=== PATIENT | female | born 2000 | race Caucasian/White ===

== ENCOUNTER 2019-03-24 15:16 | Inpatient (IN) ==
[2019-03-24] MEDS ORDERED: SODIUM CHLORIDE 0.9% 1000ML 1,000 ML IV ONE ×3 (15:50→19:59)
[2019-03-24] MEDS ORDERED: ALBUT/IPRATROP 3MG/0.5MG NEB 3 ML VIAL NEB STA ×3 (15:50→19:59)
[2019-03-24] MEDS ORDERED: ACETAMINOPHEN 1,000 MG/100 ML VIAL IV STA (15:51)
[2019-03-24 16:11] LABS: Basophils # (auto) 0.02 K/uL (0-0.2); Basophils % (auto) 0.2 %; Eosinophils # (auto) 0.08 K/uL (0-0.5); Eosinophils % (auto) 0.8 %; Hematocrit (blood only) 35.5 % (37-47); Hemoglobin 12.2 g/dL (12.0-16.0); Lymphocytes # (auto) 1.65 K/uL (1.2-3.4); Lymphocytes % (auto) 15.9 %; Mean Corpuscular Hemoglobin 30.2 pg (25-34); Mean Corpuscular Hgb Conc 34.4 g/dL (32-36); Mean Corpuscular Volume 87.9 fL (80-100); Mean Platelet Volume 10.1 fL (7.4-10.4); Monocytes % (auto) 4.8 %; Neutrophils # (auto) 8.02 K/uL (1.4-6.5); Neutrophils % (auto) 77.3 %; Platelet Count 292 K/uL (130-400); RDW Coefficient of Variation 13.6 % (11.5-14.5); RDW Standard Deviation 44.4 fL (36.4-46.3); Red Blood Count 4.04 M/uL (4.2-5.4); White Blood Count 10.37 K/uL (4.8-10.8)
[2019-03-24 16:27] LABS: Alanine Aminotransferase 31 U/L (12-78); Albumin Level 4.1 gm/dl (3.4-5.0); Aspartate Aminotransferase 20 U/L (15-37); BUN Creatinine Ratio 16.4 (10-20); Blood Urea Nitrogen 15 mg/dl (7-18); Calcium 9.4 mg/dl (8.5-10.1); Carbon Dioxide 27 mmol/L (21-32); Chloride 101 mmol/L (98-107); Creatinine Clr Calc Pharmacy 121.1 ml/min; Est GFR (African American) 108.9; Glucose 118 mg/dl (70-99); Magnesium 2.2 mg/dl (1.8-2.4); Potassium 3.5 mmol/L (3.5-5.1); Sodium 137 mmol/L (136-145)
[2019-03-24 16:31] LABS: Albumin Globulin Ratio 0.8 (0.9-2); Alkaline Phosphatase 85 U/L (45-117); Bilirubin,Total 0.3 mg/dl (0.2-1); Globulin 5.1 gm/dl (2.5-4.0); Total Protein 9.2 gm/dl (6.4-8.2); Troponin I < 0.015 ng/ml (0-0.045)
[2019-03-24 16:33] LABS: Monotest Negative (Negative); Pregnancy Test, Serum Negative (Negative)
[2019-03-24] MEDS ORDERED: KETOROLAC TROMETHAMINE 15 MG/ML VIAL IV STA (17:00)
[2019-03-24 17:07] LABS: Influenza A virus by PCR Neg for Influ A (Neg); Influenza B virus by PCR Neg for Influ B (Neg)
--- NOTE | 2019-03-24 17:47 | XRay Report ---
XR chest 2V PA/lateral CLINICAL HISTORY: cough, fever dyspnea COMPARISON STUDY: No previous studies for comparison. FINDINGS: Left and to a lesser extent right perihilar parenchymal infiltrative change. Left basilar i nfiltrative change. Pulmonary apices are clear. IMPRESSION: Bilateral parenchymal infiltrative change. The above report was generated using voice recognition software. It may contain grammatical, syntax or spelling errors. Electronically signed by: Jordan Padilla M.D. 03/24/2019 5:46 PM
[2019-03-24] MEDS ORDERED: cefTRIAXone SODIUM 1,000 MG/50 ML BAG IV STA (18:21)
[2019-03-24] MEDS ORDERED: AZITHROMYCIN 250 MG TAB PO ONE (18:21)
--- NOTE | 2019-03-24 21:24 | History & Physical Report ---
Date of Service March 24, 2019 Assessment & Plan (1) Pneumonia: 18 yo female no significant PMH presents with fevers, chills, cough for since last Monday. Acute hypoxic respiratory distress in the setting of febrile illness, pneumonia Chest x-ray showed bilateral basilar infiltrates, sats dropped to 70's with ambulation in the ED Patient's flu negative, Monospot negative, WBC 10.37, nontoxic-appearing Treating community acquired PNA with ceftriaxone/azithromycin Supportive treatments include IVF, Mucinex, Tylenol, Ibuprofen, albuterol as needed CODE STATUSfull DVT prophylaxisSCDs, ambulate Dietregular (2) Hypoxia: (3) Fever: (4) Tachycardia: (5) Myalgia: History of Present Illness Primary Care Provider: NO PCP 18 yo female no significant PMH presents with fevers, chills, cough for since last Monday. Illness began with cough on Monday and she began to develop fevers, chills, fatigue over the weekend. The patient denies neck pain, sick contacts or recent international travel. 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 She denies a history of smoking, vaping. She denies any chronic disease and she is not on any medications. Denies a history of asthma. Patient is not a OCP, denies FH of clots, no recent immobility. Review of systems Patient describes fevers, chills, fatigue. Denies sore throat. Patient denies chest pain, palpitations Reports to have shortness of breath, cough, denies hemoptysis, denies calf tenderness Denies abdominal pain, nausea/vomiting/diarrhea Allergies Allergy/AdvReac Type Severity Reaction Status Date / Time No Known Allergies Allergy Unverified 03/24/19 15:34 Home Medications Home Medications Medication Instructions Recorded Confirmed Type OR-IP-obqatt/OI-hhshsi-hvmsgsa 2 cap PO Q6H PRN 03/24/19 03/24/19 History [Vicks DayQuil-NyQuil] dextromethorphan polistirex 10 ml PO Q12H PRN 03/24/19 03/24/19 History [Delsym 12 hour] Past Med/Surg History Medical History No pertinent past medical history Family History Other No pertinent family history in first degree relatives Social History Preferred Language: Arabic Communication Ability: Effective Facilities Clerk Required: No Beliefs That Will Affect Care: None Current Living Situation Comment: Roommates Feels Safe at Home: Yes Safety Concerns: Feels Safe At This Time Smoking Status: Never smoker Hx Alcohol Use: Yes Alcohol type: beer, wine and hard liquor Hx Substance Use: No Review of Systems Review of Systems: All systems reviewed & are unremarkable except as noted in HPI & below Physical Exam Constitutional: WD/WN, vitals as above Eyes: PERRL, conjunctivae normal, anicteric sclerae ENMT: external ear and nose normal, oropharynx normal Neck: trachea midline, no thyromegaly Respiratory: normal respiratory effort, lungs clear to auscultation Cardiovascular: RRR, no murmur, no edema Gastrointestinal (Abdomen): normal bowel sounds, soft, nontender, no hepatosplenomegaly Musculoskeletal: no cyanosis or clubbing, extremities motor strength 5/5 Skin: no rashes, warm and dry Neurologic: PERRL, EOMI, accommodation nl, no face palsy, no dysarthria Psychiatric: A+Ox3, euthymic affect Results & Data Vital Signs (Past 12 Hours) Vital Signs Temp Pulse Pulse Resp BP BP Pulse Ox 03/24/19 21:00 120 H 24 114/68 03/24/19 20:30 118 H 22 102/62 93 03/24/19 20:15 105 H 16 93 03/24/19 20:14 03/24/19 20:00 108 H 19 115/68 93 03/24/19 19:35 107 H 21 97/62 L 92 03/24/19 18:47 110 H 25 H 105/67 92 03/24/19 17:56 111 H 20 102/67 97 03/24/19 17:52 101 H 18 94 03/24/19 16:33 122 H 35 H 110/93 92 03/24/19 16:28 124 H 18 92 03/24/19 15:19 38.8 C H 130 H 20 110/71 92 Pulse Ox Pulse Ox Pulse Ox 03/24/19 21:00 03/24/19 20:30 03/24/19 20:15 03/24/19 20:14 86 L 93 94 03/24/19 20:00 03/24/19 19:35 03/24/19 18:47 03/24/19 17:56 03/24/19 17:52 03/24/19 16:33 03/24/19 16:28 03/24/19 15:19 Code Status & VTE Plan Code Status full code VTE Prophylaxis Plan VTE Prophylaxis will be ordered: Yes Supervising Physician Co-Signing Physician Notes Patient seen and examined, chart reviewed, case discussed with Dr. Burris and I agree with this assessment and plan. Briefly, patient is a 18-year-old female with no significant past medical or surgical history presenting with multifocal pneumonia. She has been ill for the last few days. Developed fevers over the weekend. In the ER she was found to be tachycardic, tachypneic and hypoxic on room air, severely hypoxic with ambulation. On exam she is afebrile, regular tachycardia, otherwise hemodynamically stable, no respiratory distress. Adequate oxygenation on room air Skin: Warm, dry, intact, no rashes/lesions HEENT: Normocephalic atraumatic, pupils equal round react to light, extraocular muscles intact, moist mucous membranes, neck supple, no JVD, trachea midline Heart: S1-S2 present, regular, tachycardic, no M/R/G Lungs: Slightly diminished breath sounds bilaterally, no rales/rhonchi/wheezes Abdomen: Bowel sounds present, soft, nontender/nondistended Extremities: Warm, 2+ pulses, no edema Labs and images reviewed Assessment/plan: -Admit to medical floor -Treatment for community acquired pneumonia as above -Nebs as needed -Monitor oxygenation -Manger plan as above PG Care Time/CCT Total # of Minutes Spent Total Time Spent with Patient: Total time spent is greater than 50% in coordination of care (as documented) at patient's floor/unit and/or counseling patient: Resident Activity Tracking Resident Involvement: Resident Care Provided Care Provided: Adult Hospital Medicine (1) Fever Fever type: unspecified Qualified Code(s): R50.9 - Fever, unspecified (2) Pneumonia Laterality: unspecified laterality Lung location: unspecified part of lung Pneumonia type: due to unspecified organism Qualified Code(s): J18.9 - Pneumonia, unspecified organism
[2019-03-24] MEDS ORDERED: POLYETHYLENE (MIRALAX) 17 GM PACK PO PRN (22:14)
[2019-03-24] MEDS ORDERED: ONDANSETRON INJ 2 MG/ML 2 ML VIAL IV PRN (22:14)
[2019-03-24] MEDS ORDERED: ACETAMINOPHEN 325 MG TAB PO PRN (22:14)
[2019-03-24] MEDS ORDERED: ALBUTEROL 0.5% NEB SOLN 2.5 MG/0.5 ML VIAL NEB PRN (22:14)
[2019-03-24] MEDS ORDERED: ALBUT/IPRATROP 3MG/0.5MG NEB 3 ML VIAL INH PRN (22:23)
[2019-03-24] MEDS: SODIUM CHLORIDE 0.9% 1000ML 1,000 ML IV SCH (22:32)
--- NOTE | 2019-03-24 23:13 | Emergency Department Note ---
Entered by Vanda Kimball acting as a scribe for FloridalmajoseDominiqueyana Goel DO History of Present Illness General Chief complaint: Flu Like Symptoms Stated complaint: COUGHING,SWEATS,SOB,BODY ACHES Time Seen by Provider: 03/24/19 15:35 Source: patient History of Present Illness Provider complaint: Flu Like Symptoms Onset (ago): day(s) 4 Location: upper extremity and lower extremity Maximum Pain Intensity: 5 Relieved By: + none Exacerbated By: + movement Associated symptoms: + denies other symptoms (Diarrhea), + chest pain, + cough (With phelgm ), + diaphoresis and + shortness of breath; no nausea/vomiting The patient is a 18 year old female who presents to the Emergency Room with complaints of flu like symptoms that began 4 days ago. The patient states her symptoms are exacerbated by movement but not relieved by anything specific. The patient reports that she has been experiencing full body aches and a cough with phlegm. Additionally, the patient reports experiencing chest pain, shortness of breath, and diaphoresis. The patient denies any nausea/vomiting/diarrhea. The patient notes that she has not received a flu shot. States other vaccinations are up-to-date. Denies any other sick contacts or recent travel. Patient states she has been sipping fluids frequently, but has not had a normal appetite. Patient states she was trying [id number] cough and cold medications. Home Medications Home Medications Medication Instructions Recorded Confirmed Type JF-PJ-qiynlb/AP-ubcbuf-psvgris 2 cap PO Q6H PRN 03/24/19 03/24/19 History [Jessica DayQuil-NyQuil] dextromethorphan polistirex 10 ml PO Q12H PRN 03/24/19 03/24/19 History [Delsym 12 hour] Allergies Allergy/AdvReac Type Severity Reaction Status Date / Time No Known Allergies Allergy Unverified 03/24/19 15:34 Past Med/Surg History Medical History No pertinent past medical history Family History Other No pertinent family history in first degree relatives Social History Preferred Language: Sinhala Communication Ability: Effective 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 and A total of 10 systems reviewed and were otherwise negative Physical Exam Vital Signs Vital Signs - 24 hr 03/24/19 15:19 03/24/19 16:28 03/24/19 16:33 Temperature 38.8 C H Temperature Source Oral Sepsis Recent Fever Within 48 Hours Yes Sepsis New/Unexplained Change in Mental Status No Sepsis Action Taken by Nursing No Action Required Pulse Rate 130 H Pulse Rate [Radial] 124 H 122 H Pulse Rate from SpO2 Sensor Pulse Rhythm Regular Pulse Strength Normal Respiratory Rate 20 18 35 H Respiratory Effort / Characteristics Non-Labored Spontaneous Non-Labored Spontaneous Respiratory Depth Normal Respiratory Pattern Regular Blood Pressure 110/71 Blood Pressure [Left Arm] 110/93 Blood Pressure Mean 84 Blood Pressure Mean [Left Arm] 98 Blood Pressure Position Sitting Pulse Oximetry 92 92 92 Pulse Oximetry [Exercises] Pulse Oximetry [Recovery] Pulse Oximetry [Resting] Oxygen Delivery Method Room Air Room Air Room Air 03/24/19 17:52 03/24/19 17:56 03/24/19 18:47 Temperature Temperature Source Sepsis Recent Fever Within 48 Hours Sepsis New/Unexplained Change in Mental Status Sepsis Action Taken by Nursing Pulse Rate Pulse Rate [Radial] 101 H 111 H 110 H Pulse Rate from SpO2 Sensor Pulse Rhythm Pulse Strength Respiratory Rate 18 20 25 H Respiratory Effort / Characteristics Spontaneous Non-Labored Non-Labored Respiratory Depth Normal Normal Respiratory Pattern Regular Regular Blood Pressure Blood Pressure [Left Arm] 102/67 105/67 Blood Pressure Mean Blood Pressure Mean [Left Arm] 78 79 Blood Pressure Position Pulse Oximetry 94 97 92 Pulse Oximetry [Exercises] Pulse Oximetry [Recovery] Pulse Oximetry [Resting] Oxygen Delivery Method Room Air Room Air Room Air 03/24/19 19:35 03/24/19 20:00 03/24/19 20:14 Temperature Temperature Source Sepsis Recent Fever Within 48 Hours Sepsis New/Unexplained Change in Mental Status Sepsis Action Taken by Nursing Pulse Rate 107 H 108 H Pulse Rate [Radial] Pulse Rate from SpO2 Sensor 107 H 106 H Pulse Rhythm Pulse Strength Respiratory Rate 21 19 Respiratory Effort / Characteristics Respiratory Depth Respiratory Pattern Blood Pressure 97/62 L 115/68 Blood Pressure [Left Arm] Blood Pressure Mean 73 83 Blood Pressure Mean [Left Arm] Blood Pressure Position Pulse Oximetry 92 93 Pulse Oximetry [Exercises] 86 L Pulse Oximetry [Recovery] 93 Pulse Oximetry [Resting] 94 Oxygen Delivery Method Room Air 03/24/19 20:15 03/24/19 20:30 03/24/19 21:00 Temperature Temperature Source Sepsis Recent Fever Within 48 Hours Sepsis New/Unexplained Change in Mental Status Sepsis Action Taken by Nursing Pulse Rate 118 H 120 H Pulse Rate [Radial] 105 H Pulse Rate from SpO2 Sensor 118 H Pulse Rhythm Pulse Strength Respiratory Rate 16 22 24 Respiratory Effort / Characteristics Non-Labored Spontaneous Respiratory Depth Respiratory Pattern Blood Pressure 102/62 114/68 Blood Pressure [Left Arm] Blood Pressure Mean 75 83 Blood Pressure Mean [Left Arm] Blood Pressure Position Pulse Oximetry 93 93 Pulse Oximetry [Exercises] Pulse Oximetry [Recovery] Pulse Oximetry [Resting] Oxygen Delivery Method Room Air GENERAL: alert, ill-appearing, well nourished, no distress, non-toxic. Frequent cough during exam. EYE EXAM: normal conjunctiva, PERRL and EOM's grossly intact EARS: TM's clear bilaterally. No effusions. OROPHARYNX: no exudate, no erythema, lips, buccal mucosa, and tongue normal and mucous membranes are moist NECK: supple, no nuchal rigidity, no adenopathy, non-tender LUNGS: Clear to auscultation. Normal chest wall mechanics. No wheezes, rhonchi or rales. HEART: no murmurs, S1 normal and S2 normal ABDOMEN: abdomen soft, non-tender, normo-active bowel sounds, no masses, no rebound or guarding. BACK: Back is symmetrical on inspection and there is no deformity, no midline tenderness, no CVA tenderness. SKIN: no rashes and no bruising, no petechiae UPPER EXTREMITIES: upper extremities are grossly normal. FROM, nml pulses b/l. LOWER EXTREMITIES: No pitting edema. FROM, nml pulses b/l. NEURO EXAM: Normal sensorium, cranial nerves II-XII grossly intact, normal speech, no gross weakness of arms, no gross weakness of legs. Course 1544: Past medical records reviewed. The patient was evaluated in room B09. A complete history and physical exam was performed. 1737: I reevaluated the patient and her heart rate is still 113 and oxygen is at 93%. The patient is feeling better though and has 2nd liter of fluids running. 2000: I reevaluated the patient again and her heart rate is 108 and pulse ox is 89% but she states she feels much better. 2014: The patient did an ambulatory trial and her oxygen dropped into the 70's. I discussed the option of an inpatient stay and she is agreeable to stay. Patient did receive antibiotic coverage for community acquired pneumonia. 2030: I spoke with Dr. Arielle Elliott- Hospitalist about the patient's case and she will accept the patient for further evaluation. Administered Medications Sodium Chloride (Nss 1000ml) 1,000 mls @ 125 mls/hr IV .Q8H BECKI Stop: 04/23/19 22:13 Last Admin: 03/24/19 22:32 Dose: 125 mls/hr Documented by: [id number] Discontinued Medications Albuterol (Duoneb) 3 ml NEB NOW STA Stop: 03/24/19 15:51 Last Admin: 03/24/19 16:27 Dose: 3 ml Documented by: [id number] Albuterol (Duoneb) 3 ml NEB NOW STA Stop: 03/24/19 17:33 Last Admin: 03/24/19 17:52 Dose: 3 ml Documented by: [id number] Albuterol (Duoneb) 3 ml NEB NOW STA Stop: 03/24/19 20:00 Last Admin: 03/24/19 20:13 Dose: 3 ml Documented by: [id number] Azithromycin (Zithromax) 500 mg PO NOW ONE Stop: 03/24/19 18:22 Last Admin: 03/24/19 18:44 Dose: 500 mg Documented by: [id number] Acetaminophen (Ofirmev) 1,000 mg in 100 mls @ 400 mls/hr IV NOW STA Stop: 03/24/19 16:05 Last Infusion: 03/24/19 16:41 Dose: 0 mls/hr Documented by: [id number] Admin: 03/24/19 16:26 Dose: 400 mls/hr Documented by: [id number] Sodium Chloride (Nss 1000ml) 1,000 mls @ 999 mls/hr IV .Q1H1M ONE Stop: 03/24/19 16:50 Last Infusion: 03/24/19 17:17 Dose: 0 mls/hr Documented by: [id number] Admin: 03/24/19 16:26 Dose: 999 mls/hr Documented by: [id number] Sodium Chloride (Nss 1000ml) 1,000 mls @ 999 mls/hr IV .Q1H1M ONE Stop: 03/24/19 18:00 Last Infusion: 03/24/19 18:24 Dose: 0 mls/hr Documented by: [id number] Admin: 03/24/19 17:20 Dose: 999 mls/hr Documented by: [id number] Ceftriaxone Sodium (Rocephin) 1,000 mg in 50 mls @ 100 mls/hr IV NOW STA Stop: 03/24/19 18:50 Last Infusion: 03/24/19 19:43 Dose: 0 mls/hr Documented by: [id number] Admin: 03/24/19 18:44 Dose: 100 mls/hr Documented by: [id number] Sodium Chloride (Nss 1000ml) 1,000 mls @ 999 mls/hr IV .Q1H1M ONE Stop: 03/24/19 20:59 Last Infusion: 03/24/19 21:23 Dose: 0 mls/hr Documented by: [id number] Admin: 03/24/19 20:13 Dose: 999 mls/hr Documented by: [id number] Ketorolac Tromethamine (Toradol) 15 mg IV NOW STA Stop: 03/24/19 17:01 Last Admin: 03/24/19 17:19 Dose: 15 mg Documented by: [id number] Medical Decision Making Differential Diagnosis Differential diagnosis: Etiologies such as viral syndrome, otitis, pharyngitis, pneumonia, influenza, meningitis, urinary tract infection, septic arthritis, soft tissue infectious process, intra-abdominal process, sepsis, bacteremia, as well as others were entertained. Medical Records Attestation: I reviewed the patient's medical records. Home Medications Current Medication List: was personally reviewed by me Laboratory Data Attestation: I reviewed the patient's lab results. Result diagrams: 03/24/19 15:59 03/24/19 15:59 Lab Results 03/24/19 03/24/19 03/24/19 Range/Units 15:59 15:59 15:59 WBC 10.37 (4.8-10.8) K/uL RBC 4.04 L (4.2-5.4) M/uL Hgb 12.2 (12.0-16.0) g/dL Hct 35.5 L (37-47) % MCV 87.9 (80-100) fL MCH 30.2 (25-34) pg MCHC 34.4 (32-36) g/dL RDW Std Deviation 44.4 (36.4-46.3) fL RDW Coeff of Raimundo 13.6 (11.5-14.5) % Plt Count 292 (130-400) K/uL MPV 10.1 (7.4-10.4) fL Immature Gran % (Auto) 1.0 % Neut % (Auto) 77.3 % Lymph % (Auto) 15.9 % Overton % (Auto) 4.8 % Eos % (Auto) 0.8 % Baso % (Auto) 0.2 % Immature Gran # (Auto) 0.10 H (0.00-0.02) K/uL Neut # (Auto) 8.02 H (1.4-6.5) K/uL Lymph # (Auto) 1.65 (1.2-3.4) K/uL Overton # (Auto) 0.50 (0.11-0.59) K/uL Eos # (Auto) 0.08 (0-0.5) K/uL Baso # (Auto) 0.02 (0-0.2) K/uL Sodium 137 (136-145) mmol/L Potassium 3.5 (3.5-5.1) mmol/L Chloride 101 (98-107) mmol/L Carbon Dioxide 27 (21-32) mmol/L Anion Gap 8.0 (3-11) BUN 15 (7-18) mg/dl Creatinine 0.89 (0.6-1.2) mg/dl Est Cr Clr Drug Dosing 121.1 ml/min Est GFR ( Amer) 108.9 Est GFR (Non-Af Amer) 94.0 BUN/Creatinine Ratio 16.4 (10-20) Glucose 118 H (70-99) mg/dl Calcium 9.4 (8.5-10.1) mg/dl Magnesium 2.2 (1.8-2.4) mg/dl Total Bilirubin 0.3 (0.2-1) mg/dl AST 20 (15-37) U/L ALT 31 (12-78) U/L Alkaline Phosphatase 85 (45-117) U/L Troponin I < 0.015 (0-0.045) ng/ml Total Protein 9.2 H (6.4-8.2) gm/dl Albumin 4.1 (3.4-5.0) gm/dl Globulin 5.1 H (2.5-4.0) gm/dl Albumin/Globulin Ratio 0.8 L (0.9-2) HCG, Qual Negative (Negative) Monoscreen Negative (Negative) Influenza Type A (PCR) (Neg) Influenza Type B (PCR) (Neg) 03/24/19 Range/Units 16:21 WBC (4.8-10.8) K/uL RBC (4.2-5.4) M/uL Hgb (12.0-16.0) g/dL Hct (37-47) % MCV (80-100) fL MCH (25-34) pg MCHC (32-36) g/dL RDW Std Deviation (36.4-46.3) fL RDW Coeff of Raimundo (11.5-14.5) % Plt Count (130-400) K/uL MPV (7.4-10.4) fL Immature Gran % (Auto) % Neut % (Auto) % Lymph % (Auto) % Overton % (Auto) % Eos % (Auto) % Baso % (Auto) % Immature Gran # (Auto) (0.00-0.02) K/uL Neut # (Auto) (1.4-6.5) K/uL Lymph # (Auto) (1.2-3.4) K/uL Overton # (Auto) (0.11-0.59) K/uL Eos # (Auto) (0-0.5) K/uL Baso # (Auto) (0-0.2) K/uL Sodium (136-145) mmol/L Potassium (3.5-5.1) mmol/L Chloride (98-107) mmol/L Carbon Dioxide (21-32) mmol/L Anion Gap (3-11) BUN (7-18) mg/dl Creatinine (0.6-1.2) mg/dl Est Cr Clr Drug Dosing ml/min Est GFR ( Amer) Est GFR (Non-Af Amer) BUN/Creatinine Ratio (10-20) Glucose (70-99) mg/dl Calcium (8.5-10.1) mg/dl Magnesium (1.8-2.4) mg/dl Total Bilirubin (0.2-1) mg/dl AST (15-37) U/L ALT (12-78) U/L Alkaline Phosphatase (45-117) U/L Troponin I (0-0.045) ng/ml Total Protein (6.4-8.2) gm/dl Albumin (3.4-5.0) gm/dl Globulin (2.5-4.0) gm/dl Albumin/Globulin Ratio (0.9-2) HCG, Qual (Negative) Monoscreen (Negative) Influenza Type A (PCR) Neg for Influ A (Neg) Influenza Type B (PCR) Neg for Influ B (Neg) Imaging Data Radiologist's Impression: Radiology results as stated below per my review and the radiologist's interpretation: XR chest 2V PA/lateral CLINICAL HISTORY: cough, fever dyspnea COMPARISON STUDY: No previous studies for comparison. FINDINGS: Left and to a lesser extent right perihilar parenchymal infiltrative change. Left basilar infiltrative change. Pulmonary apices are clear. IMPRESSION: Bilateral parenchymal infiltrative change. The above report was generated using voice recognition software. It may contain grammatical, syntax or spelling errors. Electronically signed by: Jordan Padilla M.D. 03/24/2019 5:46 PM ECG Data Attestation: I personally reviewed and interpreted this ECG as follows: Indication: other (Flu like symptoms) Rate (beats per minute): 113 Rhythm: sinus tachycardia Findings: + other (Normal axis and intervals); no PAC, no PVC and no acute ischemic change Blood Pressure Blood Pressure Findings: Normal blood pressure Blood Pressure Disposition: further management by hospitalist ARABELLA Narrative Patient here initially ill-appearing, tachycardic, febrile, with a frequent cou gh. Patient's tachycardia did improve with IV rehydration and improvement of fever. Patient's other labs reassuring including a negative mono and negative influenza. I do not suspect bacteremia/sepsis. Chest x-ray did reveal pneumonia which is likely the cause of the patient's symptoms. Patient was given DuoNeb treatments here which she felt did help her breathing and her cough. Patient was covered with antibiotics for community-acquired pneumonia. Patient denies any other recent travel, is not immunocompromised. I do not suspect ACS, pericarditis, myocarditis, PE, tamponade, effusions. Patient aware of all results and was in agreement with plan. Case discussed with hospitalist for additional evaluation and management. Impression & Plan Pneumonia, Hypoxia, Fever, Tachycardia, Myalgia Discharge Plan Visit Data *Final* Discharge Date/Time: 03/24/19 21:55 Chief Complaint: Flu Like Symptoms Stated Complaint: COUGHING,SWEATS,SOB,BODY ACHES ED Provider: Dominique Rich Discharge Problem: Pneumonia, Hypoxia, Fever, Tachycardia, Myalgia Patient Disposition: Admitted As Inpatient Discharge Instructions Interventions: ED Discharge Assessment Last Done: 03/24/19 21:55 Discharge Problem: Pneumonia Qualifiers: Pneumonia type: due to unspecified organism Laterality: unspecified laterality Lung location: unspecified part of lung Qualified Code(s): J18.9 - Pneumonia, unspecified organism Fever Qualifiers: Fever type: unspecified Qualified Code(s): R50.9 - Fever, unspecified The scribe's documentation has been prepared under my direction and personally r eviewed by me in its entirety. I confirm that the note above accurately reflects all work, treatment, procedures, and medical decision making performed by me.
[2019-03-24] MEDS: IBUPROFEN 600 MG TAB PO SCH (23:22)
[2019-03-25] MEDS: SODIUM CHLORIDE 0.9% 1000ML 1,000 ML IV SCH (05:11)
[2019-03-25] MEDS: IBUPROFEN 600 MG TAB PO SCH ×2 (05:11→13:58)
[2019-03-25 07:05] LABS: Basophils # (auto) 0.03 K/uL (0-0.2); Basophils % (auto) 0.4 %; Eosinophils # (auto) 0.16 K/uL (0-0.5); Eosinophils % (auto) 2.1 %; Hematocrit (blood only) 32.3 % (37-47); Hemoglobin 10.6 g/dL (12.0-16.0); Immature Granulocytes # (auto) 0.14 K/uL (0.00-0.02); Immature Granulocytes % (auto) 1.8 %; Lymphocytes # (auto) 1.86 K/uL (1.2-3.4); Lymphocytes % (auto) 24.4 %; Mean Corpuscular Hemoglobin 29.4 pg (25-34); Mean Corpuscular Hgb Conc 32.8 g/dL (32-36); Mean Corpuscular Volume 89.5 fL (80-100); Mean Platelet Volume 10.3 fL (7.4-10.4); Monocytes # (auto) 0.58 K/uL (0.11-0.59); Monocytes % (auto) 7.6 %; Neutrophils # (auto) 4.84 K/uL (1.4-6.5); Neutrophils % (auto) 63.7 %; Platelet Count 259 K/uL (130-400); RDW Coefficient of Variation 13.7 % (11.5-14.5); RDW Standard Deviation 44.8 fL (36.4-46.3); Red Blood Count 3.61 M/uL (4.2-5.4); White Blood Count 7.61 K/uL (4.8-10.8)
[2019-03-25 07:29] LABS: BUN Creatinine Ratio 17.4 (10-20); Creatinine Clr Calc Pharmacy 167.1 ml/min; Est GFR (African American) 149.2; Est GFR (Non-African American) 128.7; Potassium 3.5 mmol/L (3.5-5.1)
[2019-03-25] MEDS ORDERED: AZITHROMYCIN 250 MG TAB PO SCH (09:00)
[2019-03-25] MEDS ORDERED: guaiFENesin 600 MG TABCR PO SCH (09:00)
--- NOTE | 2019-03-25 14:49 | Discharge Summary ---
Date of Service March 25, 2019 Admission HPI Per Admitting Provider 18 yo female no significant PMH presents with fevers, chills, cough for since last Monday. Illness began with cough on Monday and she began to develop fevers, chills, fatigue over the weekend. The patient denies neck pain, sick contacts or recent international travel. 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 She denies a history of smoking, vaping. She denies any chronic disease and she is not on any medications. Denies a history of asthma. Patient is not a OCP, denies FH of clots, no recent immobility. Review of systems Patient describes fevers, chills, fatigue. Denies sore throat. Patient denies chest pain, palpitations Reports to have shortness of breath, cough, denies hemoptysis, denies calf tenderness Denies abdominal pain, nausea/vomiting/diarrhea Admission Exam Per Admitting Provider Constitutional: WD/WN, vitals as above Eyes: PERRL, conjunctivae normal, anicteric sclerae ENMT: external ear and nose normal, oropharynx normal Neck: trachea midline, no thyromegaly Respiratory: normal respiratory effort, lungs clear to auscultation Cardiovascular: RRR, no murmur, no edema Gastrointestinal (Abdomen): normal bowel sounds, soft, nontender, no hepatosplenomegaly Musculoskeletal: no cyanosis or clubbing, extremities motor strength 5/5 Skin: no rashes, warm and dry Neurologic: PERRL, EOMI, accommodation nl, no face palsy, no dysarthria Psychiatric: A+Ox3, euthymic affect Principal Diagnosis CAP, sepsis, hypoxia - present on admission Discharge Exam Constitutional WD/WN, vitals as above Eyes PERRL, conjunctivae normal, anicteric sclerae ENMT external ear and nose normal, oropharynx normal Neck trachea midline, no thyromegaly Respiratory normal respiratory effort, lungs clear to auscultation Cardiovascular RRR, no murmur, no edema Gastrointestinal (Abdomen) normal bowel sounds, soft, nontender, no hepatosplenomegaly Musculoskeletal no cyanosis or clubbing, extremities motor strength 5/5 Skin no rashes, warm and dry Neurologic PERRL, EOMI, accommodation nl, no face palsy, no dysarthria Psychiatric A+Ox3, euthymic affect Discharge Data Allergies Allergy/AdvReac Type Severity Reaction Status Date / Time No Known Allergies Allergy Unverified 03/24/19 15:34 Consultations 03/24/19 20:30 ED Decision to Admit Stat Hospital Course (1) Pneumonia: 18 yo female no significant PMH presents with fevers, chills, cough for since last Monday. Community Acquired Pneumonia Chest x-ray showed bilateral basilar infiltrates, sats dropped to 70's with ambulation in the ED Patient's flu negative, Monospot negative, WBC 10.37, nontoxic-appearing Treated community acquired PNA with ceftriaxone/azithromycin Supportive treatments include IVF, Mucinex, Tylenol, Ibuprofen, albuterol as needed -Upon reevaluation in the afternoon, ambulation showed continued oxygenation at 94+ -Patient Discharged on Cefdinir and Zithromax for completion of antibiotic regiment. -Patient to follow up with PCP Hypoxia -As Above Fever -As Above Tachycardia -As Above Myalgia -As Above (2) Hypoxia: (3) Fever: (4) Tachycardia: (5) Myalgia: Total Time Total Time Spent Total Time Spent (In Minutes): >30 Discharge Plan Discharge Items Patient Disposition: Home - Self-Care Reason For Visit: PNEUMONIA HYPOXIA Discharge Diagnosis: Community Acquired Pneumonia Condition on Discharge: Good Activity: Resume your previous activity Non-emergency contact: Primary Care Provider Call non-emergency contact if: you have any medication questions, your symptoms worsen and your temperature is above 101 Follow-up/Referrals: [facility] [Non-Staff] - 03/29/19 11:00 am (Please, follow up at [facility] with Dr. Adina Bethea on MondayMarch 29 at 11:00 am. *If you need to change this appointment, call the office at [phone].) Diet: Regular Addtl Attending Provider Instructions: Rishi, you were first evaluated at [facility] on 03/24/19 with complaints of flu like symptoms including fever, chills, cough, shortness of breath, and muscle pains. You were given IV fluids, tylenol, and br eathing treatments that improved your fever, fast heart beat, and breathing. Chest X-ray was also taken which showed patchy infiltrates in your lungs. The cause of your symptoms was likely a result of community acquired pneumonia, to which you were given antibiotics while in the ED. Upon admission, you noted that you were feeling significantly better the following day and upon receiving your second dose of antibiotics you are being discharged to home today with the expectation to follow up with your PCP Dr. Regan Bentley in [place]. Please follow the following instructions: -Please mixing picker tender and complete your antibiotics, your first doses will start tomorrow 03/26/19. -Cefdinir 300mg by mouth twice a day x 4 days -Zithromax 250mg by mouth daily x 3 days -Please follow up with your PCP Dr. Regan Bentley by Monday- of this week. -You will be given a school excuse noting your absence for the remainder of the week. -As discussed before, it may be up to 3-4 weeks before you feel entirely well again. If you notice worsening of your symptoms or new onset of symptoms, please call your PCP or present to the ED for reevaluation. Pending Studies at Discharge: No Studies:: XR chest 2V PA/lateral CLINICAL HISTORY: cough, fever dyspnea COMPARISON STUDY: No previous studies for comparison. FINDINGS: Left and to a lesser extent right perihilar parenchymal infiltrative change. Left basilar infiltrative change. Pulmonary apices are clear. IMPRESSION: Bilateral parenchymal infiltrative change. The above report was generated using voice recognition software. It may contain grammatical, syntax or spelling errors. Electronically signed by: Jordan Padilla M.D. 03/24/2019 5:46 PM Dictated: 03/24/191744 Transcribed: 03/24/191744 Stand-Alone Forms: My [facility], Work/School Release (Inpt), Smoking Cessation Medications and DC Order Prescriptions: New azithromycin 250 mg tablet 250 mg PO DAILY 3 Days Qty: 3 RF: 0 cefdinir 300 mg capsule 300 mg PO BID 4 Days Qty: 8 RF: 0 Discontinued dextromethorphan polistirex [Delsym 12 hour] 30 mg/5 mL Suspension,Extended Rel 12 Hr 10 ml PO Q12H PRN (Reason: Cold Symptoms) RF: 0 Vicks DayQuil-NyQuil 10-5-325mg(d)/ 15-325-6.25mg Capsule, Sequential 2 cap PO Q6H PRN (Reason: Cold Symptoms) RF: 0 Discharge Orders: Discharge Order (Routine); Ordered 03/25/19 Ordered By: Nato Irene Admission Data Admit Date/Time: 03/24/19 21:09 Attending Provider: Dru Forde Admit Provider: Vince Burris Primary Care Provider: Adina Bethea Other Providers: Monica Elliott Other Interventions: Discharge Summary Assessment (RN) Last Done: 03/25/19 15:44 DC Date/Time DO NOT enter until pt leaves facility: 03/25/19 16:42 Supervising Physician Co-Signing Physician Notes I personally examined the patient and verified all pa points of history and exam, discussed case, and agree with decision making with Dr Irene. feeling better breathing easier - far less SOB than when she was admitted. coughing up green thick mucous. thinks she'll go home for a little while getting better from the pneumonia vitals noted nad breathing unlabored no dyspnea no accessory muscle use. pulse ox 92-95% on room air at rest and then with ambulation - did not appear at all RICKS/weak/unsteady with ambulation CAP/hypoxia/sepsis present on admission -safe/stable for home -finish out course of antibiotics with zithromax/cefdinir -PCP f/u later this week -outlined normal expectations on improvement from pneumonia Resident Activity Tracking Resident Involvement: Resident Care Provided Care Provided: Adult Hospital Medicine
[2019-03-25 14:59] VITALS: BP 113/77; TEMP 99.3; O2SAT 94
[2019-03-25] MEDS ORDERED: cefTRIAXone SODIUM 2,000 MG in DEXTROSE 5% 50 ML IV SCH ×2 (15:30→18:00)
[2019-03-25 15:45] VITALS: PULSE 108
== END 2019-03-25 16:42 | disposition home or self-care (01) | DRG 871 ==
LOC: ED 15:16 → 2N 21:09 → SUATTDRO 21:09 → 2N 21:55